=== PATIENT | female | born 1955 | race Caucasian/White ===

== ENCOUNTER 2020-07-17 14:22 | Emergency (ER) | payer MEDICARE, MEDICAID, SELFPAY ==
--- NOTE | ~2020-07-17 | XR_ITS ---
XR tibia fibula RT 2V DATE: 07/17/2020 15:05 INDICATION: Fell out of chair. Pain. TECHNIQUE: Portable AP and lateral views COMPARISON: 05/05/2019 right knee FINDINGS: Diffuse osteopenia. No fracture or dislocation, periosteal reaction or bone destruction of the tibia or fibula. Normal al ignment at the knee and ankle joints. IMPRESSION: No fracture or dislocation Osteopenia Reviewed, dictated and finalized at location A.
--- NOTE | ~2020-07-17 | XR_ITS ---
XR toe 1st RT min 2V DATE: 07/17/2020 16:45 INDICATION: Fall onto toe today; generalized pain of first digit TECHNIQUE: 3 views COMPARISON: None FINDINGS: There is a linear oblique fracture through the base and shaft of the distal phalanx, with i ntra-articular extension at the interphalangeal joint. There is minimal displacement or angulation. Hallux valgus and bunion deformity. Mild osteoarthritis at the first metatarsophalangeal joint. Diffuse osteopenia. IMPRESSION: Fracture of distal phalanx Reviewed, dictated and finalized at location A. IMPRESSION: Fracture of distal phalanx
[2020-07-17 14:24] VITALS: BP 132/76; PULSE 98; RESP 16; TEMP 36.7; O2SAT 96
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
[2020-07-17 17:51] VITALS: BP 132/75; PULSE 80; RESP 18; O2SAT 99
[2020-07-17 17:55] VITALS: BP 132/70; PULSE 78; RESP 18; O2SAT 99
== END 2020-07-17 17:57 | disposition home or self-care (01) ==
PROVIDERS: Emergency Provider Emergency Medicine; PCP Registered Nurse
DX: S92.421A Displaced fracture of distal phalanx of right great toe, initial encounter for closed fracture (principal); F03.90 Unspecified dementia, unspecified severity, without behavioral disturbance, psychotic disturbance, mood disturbance, and anxiety; M19.90 Unspecified osteoarthritis, unspecified site; K21.9 Gastro-esophageal reflux disease without esophagitis; Z86.14 Personal history of Methicillin resistant Staphylococcus aureus infection; N28.9 Disorder of kidney and ureter, unspecified; M81.0 Age-related osteoporosis without current pathological fracture; F41.9 Anxiety disorder, unspecified; F32.9 Major depressive disorder, single episode, unspecified; Z86.73 Personal history of transient ischemic attack (TIA), and cerebral infarction without residual deficits; Z87.440 Personal history of urinary (tract) infections; Z86.2 Personal history of diseases of the blood and blood-forming organs and certain disorders involving the immune mechanism; M85.861 Other specified disorders of bone density and structure, right lower leg; Z87.820 Personal history of traumatic brain injury; W18.30XA Fall on same level, unspecified, initial encounter
CPT/HCPCS: 73590; 73660; 99284

== ENCOUNTER 2023-02-13 10:08 | Emergency (ER) | payer MEDICARE, MEDICAID, SELFPAY ==
[2023-02-13] VITALS (62 sets, daily range): BP systolic 89–189; BP diastolic 52–160; PULSE 84–131; RESP 9–33; TEMP 36.4; O2SAT 97–98
--- NOTE | ~2023-02-13 | XR_ITS ---
Clinical Indication: Weakness AP and lateral views of the chest: Comparison: 10/17/2017 Findings: The lungs are clear, without evidence of focal consolidation or pleural effusion. Cardiome diastinal silhouette is within normal limits. Bones and soft tissues are unremarkable. Impression: Normal chest. Reviewed, dictated and finalized at [facility]. Impression: Normal chest.
--- NOTE | ~2023-02-13 | XR_ITS ---
XR foot LT min 3V DATE: 02/13/2023 14:36 INDICATION: Left foot pain TECHNIQUE: 3 views COMPARISON: None FINDINGS: There is diffuse osteopenia. No fracture or dislocation, periosteal reaction or bone destruction. IMPRESSION: Osteopenia Reviewed, dictated and finalized at location A. IMPRESSION: Osteopenia
--- NOTE | ~2023-02-13 | XR_ITS ---
XR knee LT 3V DATE: 02/13/2023 14:36 INDICATION: Fall. Left knee pain. TECHNIQUE: 3 views COMPARISON: None FINDINGS: There is prominent chronic callus along the mid femoral shaft. There is osteopenia. There is mild periarticular spurring of the patella. There is particular spurring of the lateral tibi al plateau. There is small suprapatellar knee joint effusion. There are residual drill holes through the distal femur from prior hardware. There is linear calcification along the medial aspect of the knee joint. Consider Juliana-Stieda. No recent fracture or dislocation, periosteal reaction or bone destruction is detected. No radiopaque intra-articular loose body or chondrocalcinosis. IMPRESSION: Small knee joint effusion No recent fracture or dislocation Prominent chronic callus of the femoral shaft Mild osteoarthritis Osteopenia Reviewed, dictated and finalized at location A.
--- NOTE | 2023-02-13 10:21 | ECG_ITS ---
Measurements Intervals [place] Rate: 115 P: 46 PA: 108 QRS: -26 QRSD: 74 T: 38 QT: 321 QTc: 444 Interpretive Statements SINUS TACHYCARDIA WITH SHORT PA INTERVAL BORDERLINE LEFT AXIS DEVIATION [QRS AXIS < -20] POSSIBLE RIGHT VENTRICULAR CONDUCTION DELAY [RSR (QR) IN V1/V2] ABNORMAL RHYTHM ECG NO PREVIOUS ECG AVAILABLE FOR COMPARISON Electronically Signed On 02-13-2023 15:02:40 CDT by Yossi Quinteros M.D.
[2023-02-13] MEDS: SODIUM CHLORIDE 0.9% IV 1,000 ML 999 ML IV CONT (11:57)
[2023-02-13 12:00] LABS: Basophils Absolute Auto 0.1 K/mm3 (0.0-0.1); Basophils Percent Auto 0.5 % (0.2-1.2); Eosinophils Absolute Auto 0.1 K/mm3 (0-0.3); Eosinophils Percent Auto 1.2 % (0-4.4); Hematocrit 38.8 % (37.0-47.0); Hemoglobin 12.4 g/dL (12.0-15.0); Immature Granulocyte Absolute 0.02 K/mm3 (0.00-0.031); Immature Granulocyte Percent A 0.2 % (0-0.5); Lymphocytes Absolute Auto 2.67 K/mm3 (0.9-3.2); Lymphocytes Percent Auto 27.2 % (18.3-44.2); Mean Corpuscular Hemoglobin 32.5 pg (26-34); Mean Corpuscular Volume 101.8 fl (80-100); Mean Platelet Volume 10.8 fl (7.4-10.4); Monocytes Percent Auto 10.6 % (2.6-8.5); Neutrophils Absolute Auto 5.9 K/mm3 (1.3-6.7); Neutrophils Percent Auto 60.3 % (45.5-73.1); Platelet Count Result 194 k/mm3 (150-375); Red Blood Count 3.81 M/mm3 (4.2-5.4); White Blood Count 9.8 K/mm3 (4.5-10.0)
[2023-02-13 12:10] LABS: Prothrombin Time 13.3 Seconds (11.1-14.7)
[2023-02-13 12:11] LABS: Alanine Aminotransferase 16 U/L (6-35); Albumin Level 3.7 g/dL (3.5-5.1); Alkaline Phosphatase 66 U/L (38-126); Anion Gap 7 mmol/L (8-16); Aspartate Amino Transferase 32 U/L (14-36); Bilirubin,Total 0.8 mg/dL (0.2-1.3); Blood Urea Nitrogen 23 mg/dL (7-17); Calcium 9.2 mg/dL (8.4-10.2); Carbon Dioxide 27 mmol/L (22-30); Chloride 106 mmol/L (98-107); Estimated CRCL calculation 37 ml/min; Estimated Glomerular Filt Rate 41; Glucose 93 mg/dL (65-110); Partial Thromboplastin Time 26.7 SECONDS (22.3-36.8); Potassium 4.6 mmol/L (3.4-5.0); Sodium 140 mmol/L (137-145)
[2023-02-13 13:27] LABS: Appearance Urine Turbid (Clear); Bilirubin Urine 2+ (Negative); Blood Urine Negative (Negative); Color Urine Dark Yellow (Yellow); Glucose Urine UA Negative (Negative); Ketones Urine Trace mg/dL (Negative); Leukocyte Esterase Ur Trace LEU/UL (Negative); Nitrate Urine Negative (Negative); Protein Urine 2+ mg/dL (Negative); Specific Grav Ur 1.032 (1.001-1.035)
[2023-02-13 13:33] LABS: Add Urine Microscopic? YES
[2023-02-13 13:35] LABS: WBC Urine 21-50 /hpf
[2023-02-13 13:36] LABS: RBC Urine 51-100 /hpf (0-2)
[2023-02-13 13:43] LABS: Bacteria Urine 2+ /hpf; Renal Epithelial Cells Urine Few /hpf; Squamous Epithelial Cell Urine Many /hpf (Few); Transitional Epi Cells Urine Few /hpf
[2023-02-13 13:44] LABS: Hyaline Casts Urine 20-29 /lpf
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
== END 2023-02-13 17:50 | disposition home or self-care (01) ==
PROVIDERS: Emergency Provider Emergency Medicine; PCP Registered Nurse
DX: N39.0 Urinary tract infection, site not specified (principal); S89.92XA Unspecified injury of left lower leg, initial encounter; F03.90 Unspecified dementia, unspecified severity, without behavioral disturbance, psychotic disturbance, mood disturbance, and anxiety; N28.9 Disorder of kidney and ureter, unspecified; K21.9 Gastro-esophageal reflux disease without esophagitis; M17.12 Unilateral primary osteoarthritis, left knee; M81.0 Age-related osteoporosis without current pathological fracture; F41.9 Anxiety disorder, unspecified; F32.A Depression, unspecified; Z86.73 Personal history of transient ischemic attack (TIA), and cerebral infarction without residual deficits; Z87.820 Personal history of traumatic brain injury; Z86.2 Personal history of diseases of the blood and blood-forming organs and certain disorders involving the immune mechanism; Z87.440 Personal history of urinary (tract) infections; Z86.14 Personal history of Methicillin resistant Staphylococcus aureus infection; Z90.49 Acquired absence of other specified parts of digestive tract; Z90.710 Acquired absence of both cervix and uterus; M85.862 Other specified disorders of bone density and structure, left lower leg; M85.872 Other specified disorders of bone density and structure, left ankle and foot; R00.0 Tachycardia, unspecified; R94.31 Abnormal electrocardiogram [ECG] [EKG]; W19.XXXA Unspecified fall, initial encounter
CPT/HCPCS: 36415; 71046; 73562; 73630; 80053; 81001; 85025; 85610; 85730; 87086; 93005; 96360; 99284; J7030